=== PATIENT | male | born 1950 | race Caucasian/White ===

== ENCOUNTER 2020-12-01 14:40 | Emergency (ER) | payer OTHER ==
[~2020-12-01 14:40] MED LIST: Iopamidol-370 76% 500 ML 1 ML ONE
[2020-12-01 16:36] LABS: #Eosinphils 0.5 thou/uL (0.0-0.7); #Lymphocytes 0.9 thou/uL (1.20-3.40); #Monocytes 0.2 thou/uL (0.11-0.59); #Neutrophils 3.3 thou/uL (1.40-6.50); %Basophils 0.1 % (0.0-1.0); %Eosinophils 9.4 % (0.0-10.0); %Lymphocytes 19.1 % (21.0-51.0); %Monocytes 3.7 % (0.0-10.0); %Neutrophils 67.7 % (42.0-75.0); Hemoglobin 9.1 g/dL (14.0-18.0); Mean Corpuscular Hemoglobin 28.1 pg (27.0-31.0); Mean Corpuscular Volume 87.6 fL (78.0-98.0); Mean Platelet Volume 5.4 fL (7.4-10.4); Platelet Count 405 thou/uL (130-400); RBC Distribution Width 14.6 % (11.5-14.5); Red Blood Cell (RBC) Count 3.24 mill/uL (4.70-6.10); White Blood Cell (WBC) Count 4.9 thou/uL (4.8-10.8)
[2020-12-01 17:06] LABS: ALT (SGPT) Less than 7 U/L (8-55); AST (SGOT) 12 U/L (5-34); Albumin 2.4 g/dL (3.4-4.8); Alkaline Phosphatase 68 U/L (40-110); Anion Gap 15 mmol/L (10-20); BUN (Urea Nitrogen) 13 mg/dL (8.4-25.7); Bilirubin, Total 0.2 mg/dL (0.2-1.2); Calc. Creatinine Clearance 0 mL/min (70-130); Calcium 8.4 mg/dL (7.8-10.44); Carbon Dioxide 29 mmol/L (23-31); Chloride 94 mmol/L (98-107); Glucose 95 mg/dL (80-115); Potassium 3.8 mmol/L (3.5-5.1); Protein, Total 7.4 g/dL (5.8-8.1); Sodium 134 mmol/L (136-145)
== END 2020-12-01 19:07 | disposition home or self-care (01) ==
LOC: ERS 14:40
DX: S00.01XA Abrasion of scalp, initial encounter (principal); S12.110G Anterior displaced Type II dens fracture, subsequent encounter for fracture with delayed healing; H49.11 Fourth [trochlear] nerve palsy, right eye; I25.10 Atherosclerotic heart disease of native coronary artery without angina pectoris; M06.9 Rheumatoid arthritis, unspecified; X58.XXXA Exposure to other specified factors, initial encounter
CPT/HCPCS: 70470; 72125; 80053; 85025; Q9967

== ENCOUNTER 2020-12-03 13:37 | Outpatient (CLI) | payer OTHER | END 2020-12-03 13:38 | disposition home or self-care (01) | LOC: BICMRI 13:37 | PROVIDERS: ATTEND Neurological Surgery | DX: H53.2 Diplopia (principal) | CPT/HCPCS: 70553 ==

== ENCOUNTER 2021-02-02 07:27 | Outpatient (CLI) | payer OTHER ==
[2021-02-02 08:44] LABS: Anion Gap 13 mmol/L (10-20); BUN (Urea Nitrogen) 22 mg/dL (8.4-25.7); Calc. Creatinine Clearance 0 mL/min (70-130); Calcium 8.8 mg/dL (7.8-10.44); Carbon Dioxide 28 mmol/L (23-31); Chloride 100 mmol/L (98-107); Glucose 114 mg/dL (83-110); Sodium 137 mmol/L (136-145)
[2021-02-02 08:47] LABS: INR-International Normal Ratio 1.1; PTT 25.8 sec (22.0-33.0); Prothrombin Time 12.3 sec (9.5-12.1)
[2021-02-02 09:07] LABS: Hemoglobin 8.7 g/dL (13.5-17.5); Mean Corpuscular HGB CONC 29.6 g/dL (32.0-36.0); Mean Corpuscular Volume 91.3 fl (81.2-95.1); Mean Platelet Volume 8.5 fl (7.4-10.4); Platelet Count 407 10x3/uL (150-450); RBC Distribution Width 17.9 % (11.5-14.5); Red Blood Cell (RBC) Count 3.22 10x6/uL (4.32-5.72); White Blood Cell (WBC) Count 5.8 10x3/uL (3.5-10.5)
[2021-02-02 15:47] LABS: SARS-CoV-2 PCR by NAA Not Detected (NotDetected)
== END 2021-02-02 07:28 | disposition home or self-care (01) ==
LOC: LABBT 07:27
PROVIDERS: ATTEND Neurological Surgery
DX: Z01.818 Encounter for other preprocedural examination (principal); S12.111A Posterior displaced Type II dens fracture, initial encounter for closed fracture; Z20.822 Contact with and (suspected) exposure to COVID-19
CPT/HCPCS: 80048; 85027; 85610; 85730; 93005; 93010; U0003; U0005

== ENCOUNTER 2021-03-19 15:43 | Inpatient (IN) | payer OTHER ==
[2021-03-19] MEDS ORDERED: Fentanyl 100 MCG/2 ML VIAL ONE ×2 (15:52→16:59)
[2021-03-19 16:35] LABS: #Eosinphils 0.4 thou/uL (0.0-0.7); #Lymphocytes 0.7 thou/uL (1.20-3.40); #Monocytes 0.2 thou/uL (0.11-0.59); #Neutrophils 2.9 thou/uL (1.40-6.50); %Basophils 0.2 % (0.0-1.0); %Eosinophils 9.8 % (0.0-10.0); %Lymphocytes 16.7 % (21.0-51.0); %Monocytes 3.5 % (0.0-10.0); %Neutrophils 69.7 % (42.0-75.0); Hemoglobin 9.4 g/dL (14.0-18.0); Mean Corpuscular HGB CONC 31.3 g/dL (32.0-36.0); Mean Corpuscular Hemoglobin 28.8 pg (27.0-31.0); Platelet Count 364 thou/uL (130-400); RBC Distribution Width 15.2 % (11.5-14.5); Red Blood Cell (RBC) Count 3.25 mill/uL (4.70-6.10); White Blood Cell (WBC) Count 4.2 thou/uL (4.8-10.8)
[2021-03-19 16:46] LABS: INR-International Normal Ratio 1.2
[2021-03-19 16:57] LABS: ALT (SGPT) Less than 7 U/L (8-55); AST (SGOT) 12 U/L (5-34); Albumin 2.7 g/dL (3.4-4.8); Alkaline Phosphatase 79 U/L (40-110); Anion Gap 14 mmol/L (10-20); BUN (Urea Nitrogen) 17 mg/dL (8.4-25.7); Bilirubin, Total 0.2 mg/dL (0.2-1.2); Calc. Creatinine Clearance 0 mL/min (70-130); Calcium 8.5 mg/dL (7.8-10.44); Carbon Dioxide 30 mmol/L (23-31); Chloride 97 mmol/L (98-107); Globulin 4.6 g/dL (2.4-3.5); Glucose 102 mg/dL (83-110); Potassium 4.1 mmol/L (3.5-5.1); Protein, Total 7.3 g/dL (5.8-8.1); Sodium 137 mmol/L (136-145)
[2021-03-19] MEDS ORDERED: Morphine 4 MG/ML VIAL ONE ×2 (17:52→19:54)
[2021-03-19] MEDS ORDERED: Ondansetron PF 4 MG/2 ML Vial IVP PRN (18:36)
[2021-03-19] MEDS ORDERED: Dextrose 50% Abboject 50 ML SYRINGE SLOW IVP PRN (18:36)
[2021-03-19] MEDS ORDERED: hydrALAZINE 20 MG/ML VIAL SLOW IVP PRN (18:36)
[2021-03-19] MEDS ORDERED: Morphine 4 MG/ML VIAL SLOW IVP PRN (18:36)
[2021-03-19] MEDS ORDERED: Dextrose 5% in Water 1,000 ML IV PRN (18:36)
[2021-03-19] MEDS ORDERED: Cyclobenzaprine 10 MG TAB PO PRN (18:40)
[2021-03-19] MEDS ORDERED: CEFAZOLIN 2 GM in Premix Bag 1 BAG IVPB SCH (20:45)
[2021-03-19] MEDS ORDERED: Famotidine 20 MG TAB PO SCH (21:00)
[2021-03-19] MEDS: Gabapentin 100 MG CAP PO SCH (21:21)
[2021-03-19] MEDS: Senokot S 8.6-50 MG TAB PO SCH (21:27)
[2021-03-19] MEDS: traMADol HCl 50 MG TAB PO SCH (22:59)
[2021-03-19] MEDS: Acetaminophen 500 MG TAB PO SCH (22:59)
[2021-03-20] MEDS ORDERED: Sodium Chloride 0.9% 1,000 ML IV SCH (00:01)
[2021-03-20 00:24] VITALS: BMI 20.4
[2021-03-20 04:51] LABS: SARS-CoV-2 NAA Rapid Test Not Detected (NotDetected)
[2021-03-20 05:13] LABS: #Eosinphils 0.4 thou/uL (0.0-0.7); #Monocytes 0.3 thou/uL (0.11-0.59); #Neutrophils 3.5 thou/uL (1.40-6.50); %Basophils 0.4 % (0.0-1.0); %Eosinophils 8.4 % (0.0-10.0); %Lymphocytes 19.2 % (21.0-51.0); %Monocytes 5.3 % (0.0-10.0); %Neutrophils 66.8 % (42.0-75.0); Mean Corpuscular HGB CONC 32.4 g/dL (32.0-36.0); Mean Corpuscular Hemoglobin 29.5 pg (27.0-31.0); Mean Corpuscular Volume 91.1 fL (78.0-98.0); Mean Platelet Volume 5.9 fL (7.4-10.4); Platelet Count 317 thou/uL (130-400); RBC Distribution Width 15.2 % (11.5-14.5); Red Blood Cell (RBC) Count 3.05 mill/uL (4.70-6.10); White Blood Cell (WBC) Count 5.3 thou/uL (4.8-10.8)
[2021-03-20] MEDS: traMADol HCl 50 MG TAB PO SCH ×4 (05:31→18:28)
[2021-03-20] MEDS: Levothyroxine Sodium 25 MCG TAB PO SCH (05:32)
[2021-03-20] MEDS: Acetaminophen 500 MG TAB PO SCH ×3 (05:32→18:27)
[2021-03-20 05:39] LABS: Anion Gap 11 mmol/L (10-20); BUN (Urea Nitrogen) 14 mg/dL (8.4-25.7); Calc. Creatinine Clearance 91 mL/min (70-130); Carbon Dioxide 30 mmol/L (23-31); Chloride 98 mmol/L (98-107); Glucose 78 mg/dL (83-110); Magnesium 1.8 mg/dL (1.6-2.6); Phosphorus 3.6 mg/dL (2.3-4.7); Potassium 3.9 mmol/L (3.5-5.1); Sodium 135 mmol/L (136-145)
[2021-03-20] MEDS ORDERED: Potassium Phosphate 15 MMOL in Sodium Chloride 0.9% 250 ML 250 ML IVPB SCH ×2 (09:15→14:00)
[2021-03-20] MEDS ORDERED: Magnesium 2 GM/50 ML 2 GM in Premix Bag 1 BAG IVPB SCH ×2 (09:15→14:00)
[2021-03-20] MEDS ORDERED: Dexamethasone 4 mg/ml Vial ONE (09:30)
[2021-03-20] MEDS ORDERED: Midazolam HCl 2 mg/2 ml Vial ONE (09:30)
[2021-03-20] MEDS ORDERED: PHENYLEPHRINE-NS 100 MCG/ML 10 ML SYRINGE ONE (09:40)
[2021-03-20] MEDS ORDERED: Bupivacaine HCl 0.5%/Epinephrine 1:200,000/PF 30 ml Vial ONE (09:40)
[2021-03-20] MEDS ORDERED: Ondansetron PF 4 MG/2 ML Vial ONE (09:40)
[2021-03-20] MEDS ORDERED: Dexamethasone 20 MG/5 ML VIAL ONE ×2 (09:40)
[2021-03-20] MEDS ORDERED: ePHEDrine 50 MG/ML VIAL ONE (09:40)
[2021-03-20] MEDS ORDERED: PROPOFOL 200 MG/20 ML VIAL ONE (09:40)
[2021-03-20] MEDS ORDERED: Lidocaine 1% PF 5 ML VIAL ONE (09:40)
[2021-03-20] MEDS ORDERED: Tranexamic Acid 1,000 MG/10 ML VIAL ONE (10:28)
[2021-03-20] MEDS ORDERED: Sodium Chloride 0.9% 100 ML ONE (10:29)
[2021-03-20] MEDS ORDERED: Ampicillin 2 GM VIAL ONE (10:29)
[2021-03-20] MEDS ORDERED: ceFAZolin 2 GM/DEX 5% 100 ML BAG ONE (10:29)
[2021-03-20] MEDS ORDERED: Tranexamic Acid 1,000 MG in Sodium Chloride 0.9% 250 ML 250 ML IVPB SCH (11:00)
[2021-03-20] MEDS ORDERED: Fentanyl 100 MCG/2 ML VIAL ONE (11:11)
[2021-03-20] MEDS ORDERED: Phenylephrine 10 MG/ML VIAL ONE (12:01)
[2021-03-20] MEDS ORDERED: Ondansetron HCl/PF 4 MG/2 ML Vial IVP PRN (12:48)
[2021-03-20] MEDS ORDERED: Promethazine HCl 25 MG/ML VIAL IVPB PRN (12:48)
[2021-03-20] MEDS ORDERED: Promethazine HCl 25 MG/ML VIAL IM PRN (12:48)
[2021-03-20] MEDS: Gabapentin 100 MG CAP PO SCH ×3 (14:33→20:47)
[2021-03-20] MEDS: Bupropion 150 MG XL TAB PO SCH ×2 (14:37→20:47)
[2021-03-20] MEDS: Polyethylene Glycol 3350 17 GM Packet PO SCH (14:37)
[2021-03-20] MEDS: Senokot S 8.6-50 MG TAB PO SCH ×2 (14:38→20:47)
[2021-03-20] MEDS: CEFAZOLIN 2 GM, Admixture Fee 1 EACH in Sodium Chloride 0.9% 100 ML IVPB SCH (18:26)
[2021-03-20] MEDS: Atorvastatin Calcium 40 MG TAB PO SCH (20:46)
[2021-03-21] MEDS: Acetaminophen 500 MG TAB PO SCH ×5 (00:57→23:36)
[2021-03-21] MEDS: traMADol HCl 50 MG TAB PO SCH ×5 (00:58→23:35)
[2021-03-21] MEDS: CEFAZOLIN 2 GM, Admixture Fee 1 EACH in Sodium Chloride 0.9% 100 ML IVPB SCH (02:39)
[2021-03-21] MEDS: Levothyroxine Sodium 25 MCG TAB PO SCH (05:42)
[2021-03-21 06:09] LABS: #Eosinphils 0.1 thou/uL (0.0-0.7); #Lymphocytes 1.4 thou/uL (1.20-3.40); #Monocytes 0.4 thou/uL (0.11-0.59); #Neutrophils 3.6 thou/uL (1.40-6.50); %Basophils 0.3 % (0.0-1.0); %Eosinophils 1.2 % (0.0-10.0); %Lymphocytes 25.6 % (21.0-51.0); %Monocytes 7.4 % (0.0-10.0); %Neutrophils 65.5 % (42.0-75.0); Hemoglobin 8.8 g/dL (14.0-18.0); Mean Corpuscular HGB CONC 31.5 g/dL (32.0-36.0); Mean Corpuscular Hemoglobin 29.1 pg (27.0-31.0); Mean Corpuscular Volume 92.3 fL (78.0-98.0); Mean Platelet Volume 5.8 fL (7.4-10.4); Platelet Count 326 thou/uL (130-400); RBC Distribution Width 14.9 % (11.5-14.5); Red Blood Cell (RBC) Count 3.01 mill/uL (4.70-6.10); White Blood Cell (WBC) Count 5.5 thou/uL (4.8-10.8)
[2021-03-21 06:34] LABS: Anion Gap 12 mmol/L (10-20); BUN (Urea Nitrogen) 15 mg/dL (8.4-25.7); Calc. Creatinine Clearance 91 mL/min (70-130); Calcium 7.8 mg/dL (7.8-10.44); Carbon Dioxide 29 mmol/L (23-31); Chloride 98 mmol/L (98-107); Glucose 80 mg/dL (83-110); Magnesium 2.2 mg/dL (1.6-2.6); Phosphorus 4.1 mg/dL (2.3-4.7); Potassium 4.5 mmol/L (3.5-5.1); Sodium 134 mmol/L (136-145)
[2021-03-21] MEDS ORDERED: Sodium Chloride 0.9% 500 ML IV SCH (09:15)
[2021-03-21] MEDS: Polyethylene Glycol 3350 17 GM Packet PO SCH (09:34)
[2021-03-21] MEDS: Senokot S 8.6-50 MG TAB PO SCH ×2 (09:34→21:03)
[2021-03-21] MEDS: Gabapentin 100 MG CAP PO SCH ×3 (09:35→21:03)
[2021-03-21] MEDS: Folic Acid 1 MG TAB PO SCH (09:36)
[2021-03-21] MEDS: Bupropion 150 MG XL TAB PO SCH ×2 (09:36→21:03)
[2021-03-21] MEDS: Aspirin 81 mg Enteric Coated Tablet PO SCH ×2 (10:29→21:03)
[2021-03-21] MEDS ORDERED: CEFAZOLIN 2 GM, Admixture Fee 1 EACH in Sodium Chloride 0.9% 100 ML IVPB SCH (10:30)
[2021-03-21] MEDS: Atorvastatin Calcium 40 MG TAB PO SCH (21:03)
[2021-03-22] MEDS: traMADol HCl 50 MG TAB PO SCH ×2 (04:56→11:47)
[2021-03-22] MEDS: Acetaminophen 500 MG TAB PO SCH ×2 (04:58→11:47)
[2021-03-22] MEDS: Levothyroxine Sodium 25 MCG TAB PO SCH (04:58)
[2021-03-22 05:37] LABS: #Eosinphils 0.5 thou/uL (0.0-0.7); #Lymphocytes 1.4 thou/uL (1.20-3.40); #Monocytes 0.4 thou/uL (0.11-0.59); #Neutrophils 2.6 thou/uL (1.40-6.50); %Basophils 0.6 % (0.0-1.0); %Eosinophils 10.8 % (0.0-10.0); %Lymphocytes 28.2 % (21.0-51.0); %Monocytes 7.6 % (0.0-10.0); %Neutrophils 52.8 % (42.0-75.0); Hemoglobin 8.2 g/dL (14.0-18.0); Mean Corpuscular HGB CONC 31.9 g/dL (32.0-36.0); Mean Corpuscular Hemoglobin 29.5 pg (27.0-31.0); Mean Corpuscular Volume 92.5 fL (78.0-98.0); Mean Platelet Volume 5.6 fL (7.4-10.4); Platelet Count 277 thou/uL (130-400); RBC Distribution Width 15.2 % (11.5-14.5); Red Blood Cell (RBC) Count 2.79 mill/uL (4.70-6.10); White Blood Cell (WBC) Count 4.8 thou/uL (4.8-10.8)
[2021-03-22 06:15] LABS: BUN (Urea Nitrogen) 13 mg/dL (8.4-25.7); Calc. Creatinine Clearance 103 mL/min (70-130); Carbon Dioxide 30 mmol/L (23-31); Glucose 76 mg/dL (83-110); Magnesium 1.9 mg/dL (1.6-2.6)
[2021-03-22 08:52] LABS: Calcium 7.7 mg/dL (7.8-10.44); Chloride 102 mmol/L (98-107); Potassium 4.2 mmol/L (3.5-5.1); Sodium 140 mmol/L (136-145)
[2021-03-22 08:54] LABS: Anion Gap 12 mmol/L (10-20)
[2021-03-22] MEDS: Aspirin 81 mg Enteric Coated Tablet PO SCH (09:41)
[2021-03-22] MEDS: Folic Acid 1 MG TAB PO SCH (09:41)
[2021-03-22] MEDS: Gabapentin 100 MG CAP PO SCH ×2 (09:41→15:41)
[2021-03-22] MEDS: Bupropion 150 MG XL TAB PO SCH (09:42)
[2021-03-22] MEDS: Polyethylene Glycol 3350 17 GM Packet PO SCH (09:51)
[2021-03-22] MEDS: Senokot S 8.6-50 MG TAB PO SCH (09:51)
[2021-03-22] MEDS ORDERED: PHOS-NAK 1 PKT PACK PO SCH (10:45)
[2021-03-22 16:33] VITALS: BP 113/60; TEMP 97.8
== END 2021-03-22 18:00 | DRG 956 ==
LOC: ERS 15:43 → SURG A 18:36
PROVIDERS: ADMIT Surgery; ATTEND Surgery
PROC: 0QS704Z Reposition Left Upper Femur with Internal Fixation Device, Open Approach (ICD-10-PCS; principal; 2021-03-20)
DX: S72.142A Displaced intertrochanteric fracture of left femur, initial encounter for closed fracture (principal); S27.0XXA Traumatic pneumothorax, initial encounter; I25.10 Atherosclerotic heart disease of native coronary artery without angina pectoris; M06.9 Rheumatoid arthritis, unspecified; Z96.652 Presence of left artificial knee joint; S09.90XA Unspecified injury of head, initial encounter; W19.XXXA Unspecified fall, initial encounter; I48.91 Unspecified atrial fibrillation; E03.9 Hypothyroidism, unspecified; Z20.822 Contact with and (suspected) exposure to COVID-19; Z95.5 Presence of coronary angioplasty implant and graft; Y92.89 Other specified places as the place of occurrence of the external cause
CPT/HCPCS: 36415; 51702; 70450; 71045; 72125; 76000; 80048; 80053; 83735; 84100; 85025; 85610; 86850; 86900; 86901; 93005; 96374; 96375; 96376; C1713; G0390; J0290; J0690; J1100; J2250; J2270; J2370; J2405; J2704; J3010; J3475; J3490; J7030; J7050; U0002

== ENCOUNTER 2021-04-02 05:54 | Inpatient (IN) | payer OTHER ==
[2021-04-02] MEDS ORDERED: Neomycin-Polymyxin 1 ML AMP ONE (06:10)
[2021-04-02] MEDS ORDERED: EPINEPHrine 1 MG/ML AMP ONE (06:10)
[2021-04-02] MEDS ORDERED: Thrombin 5000 UNITS/5 ML VIAL ONE ×2 (06:10→09:32)
[2021-04-02] MEDS ORDERED: Bupivacaine PF 0.5% 30 ML VIAL ONE (06:10)
[2021-04-02] MEDS ORDERED: Bacitracin Zinc Ointment 30 gm TUBE ONE (06:30)
[2021-04-02] MEDS ORDERED: Midazolam HCl 2 mg/2 ml Vial ONE (06:34)
[2021-04-02] MEDS ORDERED: Fentanyl 250 MCG/5 ML VIAL ONE (06:34)
[2021-04-02] MEDS ORDERED: ceFAZolin 2 GM/DEX 5% 100 ML BAG ONE (06:47)
[2021-04-02] MEDS ORDERED: Rocuronium Bromide 10 MG/ML (10ML VIAL) ONE (07:01)
[2021-04-02] MEDS ORDERED: PROPOFOL 200 MG/20 ML VIAL ONE (07:01)
[2021-04-02] MEDS ORDERED: PHENYLEPHRINE-NS 100 MCG/ML 10 ML SYRINGE ONE (07:01)
[2021-04-02] MEDS ORDERED: ePHEDrine 50 MG/ML VIAL ONE (07:01)
[2021-04-02] MEDS ORDERED: Lidocaine 1% PF 5 ML VIAL ONE (07:01)
[2021-04-02] MEDS ORDERED: Ondansetron PF 4 MG/2 ML Vial ONE (07:01)
[2021-04-02] MEDS ORDERED: Glycopyrrolate 0.2 MG/ML 5 ML SYRINGE ONE (07:01)
[2021-04-02] MEDS ORDERED: Dexamethasone 20 MG/5 ML VIAL ONE (07:01)
[2021-04-02] MEDS ORDERED: Milk Of Magnesia 30 ML UDCUP PO PRN (07:20)
[2021-04-02] MEDS ORDERED: Morphine 2 MG/ML VIAL SLOW IVP PRN (07:20)
[2021-04-02] MEDS ORDERED: Mag-Al 1200 mg/1200 mg/30 ML UDCUP PO PRN (07:20)
[2021-04-02] MEDS ORDERED: Promethazine 25 MG TAB PO PRN (07:20)
[2021-04-02] MEDS ORDERED: Ondansetron PF 4 MG/2 ML Vial IVP PRN (07:20)
[2021-04-02] MEDS ORDERED: Bisacodyl 10 MG SUPP PR PRN (07:20)
[2021-04-02] MEDS ORDERED: Phenylephrine 10 MG/ML VIAL ONE (07:39)
[2021-04-02] MEDS ORDERED: Morphine 4 MG/ML VIAL SLOW IVP PRN (07:54)
[2021-04-02] MEDS ORDERED: Furosemide 20 MG TAB PO SCH (09:00)
[2021-04-02] MEDS ORDERED: Non-Formulary Item 1 EACH (Ferrous Sulfate [Ferosul] 325 MG Tablet) PO SCH (09:00)
[2021-04-02] MEDS ORDERED: Non-Formulary Item 1 EACH (Omeprazole [Omeprazole] 20 MG Capsule.Dr) PO SCH (09:00)
[2021-04-02] MEDS ORDERED: Ondansetron HCl/PF 4 MG/2 ML Vial IVP PRN (12:45)
[2021-04-02] MEDS ORDERED: Promethazine HCl 25 MG/ML VIAL IM PRN (12:45)
[2021-04-02] MEDS ORDERED: Promethazine HCl 25 MG/ML VIAL IVPB PRN (12:45)
[2021-04-02] MEDS ORDERED: ceFAZolin Sodium/D5W 2 GM in Premix Bag 1 BAG IVPB SCH (14:00)
[2021-04-02] MEDS: Gabapentin 100 MG CAP PO SCH ×3 (16:05→21:00)
[2021-04-02] MEDS: HYDROcodone/Acetaminophen 7.5/325 mg Tablet PO PRN (16:06)
[2021-04-02] MEDS: Bupropion 150 MG XL TAB PO SCH ×2 (16:14→20:59)
[2021-04-02] MEDS: Folic Acid 1 MG TAB PO SCH (16:14)
[2021-04-02] MEDS: Levothyroxine Sodium 25 MCG TAB PO SCH (16:14)
[2021-04-02] MEDS: Ferrous Sulfate 325 MG TAB PO SCH (16:14)
[2021-04-02] MEDS ORDERED: FLU VACC QS2021-22(65YR UP)/PF 240 MCG/0.7 ML SYRINGE IM ONE (18:15)
[2021-04-02] MEDS ORDERED: Ketorolac Tromethamine 30 MG/ML VIAL ONE (20:55)
[2021-04-02] MEDS: Atorvastatin Calcium 40 MG TAB PO SCH (20:59)
[2021-04-02] MEDS: CEFAZOLIN 2 GM, Admixture Fee 1 EACH in Sodium Chloride 0.9% 100 ML IVPB SCH (21:03)
[2021-04-02] MEDS ORDERED: Acetaminophen 325 MG TAB PO PRN (21:10)
[2021-04-02] MEDS ORDERED: Sodium Chloride 0.9% 1,000 ML IV SCH ×2 (21:15→23:45)
[2021-04-03 00:15] LABS: #Eosinphils 0.1 thou/uL (0.0-0.7); #Lymphocytes 1.4 thou/uL (1.20-3.40); #Monocytes 0.7 thou/uL (0.11-0.59); #Neutrophils 4.9 thou/uL (1.40-6.50); %Basophils 0.4 % (0.0-1.0); %Eosinophils 0.8 % (0.0-10.0); %Lymphocytes 20.1 % (21.0-51.0); %Monocytes 9.9 % (0.0-10.0); %Neutrophils 68.8 % (42.0-75.0); Hemoglobin 6.9 g/dL (14.0-18.0); Mean Corpuscular HGB CONC 32.5 g/dL (32.0-36.0); Mean Corpuscular Hemoglobin 30.2 pg (27.0-31.0); Mean Corpuscular Volume 92.7 fL (78.0-98.0); Mean Platelet Volume 5.7 fL (7.4-10.4); Platelet Count 326 thou/uL (130-400); RBC Distribution Width 15.8 % (11.5-14.5); Red Blood Cell (RBC) Count 2.29 mill/uL (4.70-6.10); White Blood Cell (WBC) Count 7.1 thou/uL (4.8-10.8)
[2021-04-03] MEDS: Sodium Chloride 0.9% 1,000 ML IV SCH ×2 (00:40→11:57)
[2021-04-03 00:48] LABS: Anion Gap 9 mmol/L (10-20); BUN (Urea Nitrogen) 13 mg/dL (8.4-25.7); Calc. Creatinine Clearance 80 mL/min (70-130); Calcium 7.8 mg/dL (7.8-10.44); Carbon Dioxide 29 mmol/L (23-31); Chloride 101 mmol/L (98-107); Glucose 90 mg/dL (83-110); Sodium 135 mmol/L (136-145)
[2021-04-03] MEDS: Ketorolac Tromethamine 30 MG/ML VIAL IVP PRN ×2 (02:03→20:02)
[2021-04-03] MEDS: CEFAZOLIN 2 GM, Admixture Fee 1 EACH in Sodium Chloride 0.9% 100 ML IVPB SCH (06:09)
[2021-04-03] MEDS: Furosemide 20 MG TAB PO SCH (09:04)
[2021-04-03] MEDS: Acetaminophen/Codeine 30-300mg Tablet PO PRN ×2 (09:16→14:13)
[2021-04-03] MEDS: Gabapentin 100 MG CAP PO SCH ×3 (09:17→20:01)
[2021-04-03] MEDS: Ferrous Sulfate 325 MG TAB PO SCH (09:18)
[2021-04-03] MEDS: tiZANidine HCl 4 MG TAB PO PRN ×2 (09:18→16:12)
[2021-04-03] MEDS: Bupropion 150 MG XL TAB PO SCH ×2 (09:18→20:00)
[2021-04-03] MEDS: Folic Acid 1 MG TAB PO SCH (09:18)
[2021-04-03] MEDS: Levothyroxine Sodium 25 MCG TAB PO SCH (09:18)
[2021-04-03 09:40] LABS: #Eosinphils 0.2 thou/uL (0.0-0.7); #Lymphocytes 1.1 thou/uL (1.20-3.40); #Monocytes 0.6 thou/uL (0.11-0.59); %Eosinophils 4.2 % (0.0-10.0); %Lymphocytes 18.9 % (21.0-51.0); %Monocytes 9.9 % (0.0-10.0); Hemoglobin 7.9 g/dL (14.0-18.0); Mean Corpuscular HGB CONC 31.4 g/dL (32.0-36.0); Mean Corpuscular Hemoglobin 29.6 pg (27.0-31.0); Mean Corpuscular Volume 94.2 fL (78.0-98.0); Mean Platelet Volume 5.7 fL (7.4-10.4); Platelet Count 323 thou/uL (130-400); Red Blood Cell (RBC) Count 2.68 mill/uL (4.70-6.10); White Blood Cell (WBC) Count 5.9 thou/uL (4.8-10.8)
[2021-04-03 09:54] LABS: Anion Gap 9 mmol/L (10-20); BUN (Urea Nitrogen) 14 mg/dL (8.4-25.7); Calc. Creatinine Clearance 91 mL/min (70-130); Calcium 7.6 mg/dL (7.8-10.44); Carbon Dioxide 29 mmol/L (23-31); Chloride 102 mmol/L (98-107); Glucose 97 mg/dL (83-110); Potassium 4.2 mmol/L (3.5-5.1); Sodium 136 mmol/L (136-145)
[2021-04-03] MEDS: HYDROcodone/Acetaminophen 7.5/325 mg Tablet PO PRN ×2 (16:12→20:01)
[2021-04-03] MEDS: Atorvastatin Calcium 40 MG TAB PO SCH (20:01)
[2021-04-04] MEDS: HYDROcodone/Acetaminophen 7.5/325 mg Tablet PO PRN (01:57)
[2021-04-04] MEDS: tiZANidine HCl 4 MG TAB PO PRN ×2 (01:57→09:34)
[2021-04-04] MEDS: diphenhydrAMINE 25 MG CAP PO PRN ×2 (05:04→23:37)
[2021-04-04] MEDS: Acetaminophen/Codeine 30-300mg Tablet PO PRN ×3 (05:04→22:11)
[2021-04-04 06:46] LABS: Thyroid Stimulating Hormone 2.4248 uIU/mL (0.35-4.94)
[2021-04-04 08:35] LABS: Hemoglobin 8.6 g/dL (14.0-18.0); Platelet Count 335 thou/uL (130-400)
[2021-04-04] MEDS: Ferrous Sulfate 325 MG TAB PO SCH (09:29)
[2021-04-04] MEDS: Gabapentin 100 MG CAP PO SCH ×3 (09:30→20:51)
[2021-04-04] MEDS: Levothyroxine Sodium 25 MCG TAB PO SCH (09:30)
[2021-04-04] MEDS: Furosemide 20 MG TAB PO SCH (09:30)
[2021-04-04] MEDS: Bupropion 150 MG XL TAB PO SCH ×2 (09:30→20:51)
[2021-04-04] MEDS: Folic Acid 1 MG TAB PO SCH (09:31)
[2021-04-04] MEDS: HYDROcodone/Acetaminophen 10/325 mg Tablet PO PRN (15:17)
[2021-04-04 20:21] VITALS: BMI 20.6
[2021-04-04] MEDS: Atorvastatin Calcium 40 MG TAB PO SCH (20:52)
[2021-04-05] MEDS: HYDROcodone/Acetaminophen 10/325 mg Tablet PO PRN ×3 (01:09→14:15)
[2021-04-05] MEDS: Gabapentin 100 MG CAP PO SCH ×2 (08:27→14:15)
[2021-04-05] MEDS: Ferrous Sulfate 325 MG TAB PO SCH (08:27)
[2021-04-05] MEDS: Bupropion 150 MG XL TAB PO SCH (08:28)
[2021-04-05] MEDS: Folic Acid 1 MG TAB PO SCH (08:28)
[2021-04-05] MEDS: Furosemide 20 MG TAB PO SCH (08:28)
[2021-04-05] MEDS: Ketorolac Tromethamine 30 MG/ML VIAL IVP PRN (08:32)
[2021-04-05] MEDS: Levothyroxine Sodium 25 MCG TAB PO SCH (08:41)
[2021-04-05 15:35] VITALS: BP 116/52; TEMP 98.2
== END 2021-04-05 17:04 | DRG 472 ==
LOC: SDC 05:54 → SURG B 07:20 → SDC 23:19 → SURG B 23:20
PROVIDERS: ADMIT Neurological Surgery; ATTEND Neurological Surgery
PROC: 0RG1071 Fusion of Cervical Vertebral Joint with Autologous Tissue Substitute, Posterior Approach, Posterior Column, Open Approach (ICD-10-PCS; principal; 2021-04-02)
PROC: 30233N1 Transfusion of Nonautologous Red Blood Cells into Peripheral Vein, Percutaneous Approach (ICD-10-PCS; 2021-04-03)
DX: S12.1 Fracture of second cervical vertebra (principal); D62 Acute posthemorrhagic anemia; I31.3 Pericardial effusion (noninflammatory); Z23 Encounter for immunization; Z20.822 Contact with and (suspected) exposure to COVID-19; W01.198A Fall on same level from slipping, tripping and stumbling with subsequent striking against other object, initial encounter; Y92.511 Restaurant or cafe as the place of occurrence of the external cause; I25.10 Atherosclerotic heart disease of native coronary artery without angina pectoris; M06.9 Rheumatoid arthritis, unspecified; F41.9 Anxiety disorder, unspecified; I10 Essential (primary) hypertension; M81.0 Age-related osteoporosis without current pathological fracture; F32.A Depression, unspecified; Z96.659 Presence of unspecified artificial knee joint; E03.9 Hypothyroidism, unspecified; G89.4 Chronic pain syndrome; Z96.652 Presence of left artificial knee joint; R29.6 Repeated falls; I08.3 Combined rheumatic disorders of mitral, aortic and tricuspid valves; I95.89 Other hypotension; S72.002D Fracture of unspecified part of neck of left femur, subsequent encounter for closed fracture with routine healing; Z95.5 Presence of coronary angioplasty implant and graft; Z79.899 Other long term (current) drug therapy; Z79.890 Hormone replacement therapy; Z79.82 Long term (current) use of aspirin; Z88.5 Allergy status to narcotic agent; Z80.1 Family history of malignant neoplasm of trachea, bronchus and lung; Z98.890 Other specified postprocedural states; Z87.891 Personal history of nicotine dependence; Z91.81 History of falling
CPT/HCPCS: 36415; 36430; 76000; 80048; 82607; 82746; 84443; 85014; 85018; 85025; 85049; 86850; 86900; 86901; 90471; 90732; 93306; C1713; C1768; G0009; J0171; J0690; J1100; J1885; J2250; J2270; J2370; J2405; J2704; J3010; J3370; J3490; J7050; P9016; S0020

== ENCOUNTER 2021-06-04 08:16 | Outpatient (CLI) | payer OTHER | END 2021-06-04 08:17 | disposition home or self-care (01) | LOC: TBSIIMAG 08:16 | PROVIDERS: ATTEND Neurological Surgery | DX: S12.110A Anterior displaced Type II dens fracture, initial encounter for closed fracture (principal); Z98.1 Arthrodesis status | CPT/HCPCS: 72040 ==

== ENCOUNTER 2022-01-04 09:39 | Emergency (ER) | payer OTHER, MEDICARE, BC ==
[2022-01-04 11:00] LABS: #Eosinphils 0.2 thou/uL (0.0-0.7); #Monocytes 0.5 thou/uL (0.11-0.59); #Neutrophils 4.7 thou/uL (1.40-6.50); %Basophils 0.6 % (0.0-1.0); %Eosinophils 2.8 % (0.0-10.0); %Lymphocytes 15.8 % (21.0-51.0); %Neutrophils 72.7 % (42.0-75.0); Hemoglobin 11.5 g/dL (14.0-18.0); Mean Corpuscular HGB CONC 31.5 g/dL (32.0-36.0); Mean Corpuscular Hemoglobin 33.1 pg (27.0-31.0); Mean Platelet Volume 6.7 fL (7.4-10.4); Platelet Count 209 thou/uL (130-400); RBC Distribution Width 13.7 % (11.5-14.5); Red Blood Cell (RBC) Count 3.49 mill/uL (4.70-6.10); White Blood Cell (WBC) Count 6.5 thou/uL (4.8-10.8)
[2022-01-04 11:20] LABS: Anion Gap 14 mmol/L (10-20); BUN (Urea Nitrogen) 14 mg/dL (8.4-25.7); Calc. Creatinine Clearance 0 mL/min (70-130); Carbon Dioxide 28 mmol/L (23-31); Chloride 97 mmol/L (98-107); Potassium 3.8 mmol/L (3.5-5.1); Sodium 135 mmol/L (136-145)
[2022-01-04 11:21] LABS: ALT (SGPT) 13 U/L (8-55); AST (SGOT) 17 U/L (5-34); Albumin 3.7 g/dL (3.4-4.8); Alkaline Phosphatase 90 U/L (40-110); Bilirubin, Total 0.4 mg/dL (0.2-1.2); Calcium 8.6 mg/dL (7.8-10.44); Estimated GFR 95; Globulin 3.5 g/dL (2.4-3.5); Glucose 116 mg/dL (83-110); Protein, Total 7.2 g/dL (5.8-8.1)
[2022-01-04] MEDS ORDERED: Ketorolac Tromethamine 30 MG/ML VIAL ONE (13:15)
== END 2022-01-04 17:01 | disposition home or self-care (01) ==
LOC: ERS 09:39
DX: S32.10XA Unspecified fracture of sacrum, initial encounter for closed fracture (principal); R33.9 Retention of urine, unspecified; I25.10 Atherosclerotic heart disease of native coronary artery without angina pectoris; Z79.82 Long term (current) use of aspirin; Z79.899 Other long term (current) drug therapy; W18.30XA Fall on same level, unspecified, initial encounter
CPT/HCPCS: 36415; 51702; 74177; 80053; 85025; 93005; 96374; J1885; Q9967

== ENCOUNTER 2023-11-26 17:53 | Emergency (ER) | payer OTHER, MEDICARE ==
[~2023-11-26 17:53] MED LIST changes: +Iopamidol 370 76% 100 ML VIAL ONE; -Iopamidol-370 76% 500 ML 1 ML ONE
[2023-11-26 18:40] LABS: #Basophils 0.03 10x3/uL (0.0-0.2); %Basophils 0.3 % (0.0-1.0); %Eosinophils 1.5 % (0.0-10.0); %Lymphocytes 7.1 % (21.0-51.0); %Monocytes 5.4 % (0.0-10.0); %Neutrophils 85.3 % (42.0-75.0); Hematocrit 36.9 % (42.0-52.0); Hemoglobin 11.9 g/dL (14.0-18.0); Mean Corpuscular HGB CONC 32.2 g/dL (32.0-36.0); Mean Corpuscular Hemoglobin 33.1 pg (27.0-31.0); Mean Corpuscular Volume 102.8 fL (78.0-98.0); Mean Platelet Volume 8.9 fL (7.4-10.4); Platelet Count 214 10x3/uL (130-400); RBC Distribution Width 13.9 % (11.5-14.5); Red Blood Cell (RBC) Count 3.59 mill/uL (4.70-6.10)
[2023-11-26 18:49] LABS: Bacteria/HPF None Seen HPF (None Seen); Bilirubin Negative (Negative); Blood, Urine 2+ (Negative); CAUTI Indications for Culture Alt mental st,lethar; Clarity Turbid (Clear); Glucose, Urine (Dipstick) Normal (Negative); Ketone, Urine Negative (Negative); Leukocyte Negative Leu/uL (Negative); Nitrite Negative (Negative); Protein, Urine (Dipstick) 20 mg/dL (Neg-Trace); Specific Gravity, Urine 1.015 (1.002-1.036); Squamous Epithelial None Seen HPF (0-3); WBC/HPF 0-3 HPF (0-3); pH, Urine 7.5 (5.0-9.0)
[2023-11-26 18:53] LABS: Urine Culture Reflex No No
[2023-11-26 19:00] LABS: ALT (SGPT) 16 U/L (8-55); AST (SGOT) 22 U/L (5-34); Albumin 3.7 g/dL (3.4-4.8); Alkaline Phosphatase 99 U/L (40-110); Anion Gap 14 mmol/L (10-20); BUN (Urea Nitrogen) 14 mg/dL (8.4-25.7); Bilirubin, Total 0.7 mg/dL (0.2-1.2); Calc. Creatinine Clearance 0 mL/min (70-130); Calcium 9.1 mg/dL (7.8-10.44); Carbon Dioxide 33 mmol/L (23-31); Chloride 98 mmol/L (98-107); Estimated GFR 99; Globulin 4.3 g/dL (2.4-3.5); Glucose 87 mg/dL (83-110); Potassium 3.4 mmol/L (3.5-5.1); Sodium 142 mmol/L (136-145)
[2023-11-26 19:06] LABS: Troponin I 0.012 ng/mL (< 0.028)
[2023-11-26 19:15] LABS: Influenza A by NAA Not Detected (NotDetected); Influenza B by NAA Not Detected (NotDetected); SARS-CoV-2 NAA Rapid Test Not Detected (NotDetected)
== END 2023-11-26 21:55 ==
LOC: ERS 17:53
DX: R13.10 Dysphagia, unspecified (principal); I10 Essential (primary) hypertension; Z87.891 Personal history of nicotine dependence
CPT/HCPCS: 70491; 71045; 80053; 81001; 84484; 85025; 93005; Q9967